=== PATIENT | female | born 1965 | race Caucasian/White ===

== ENCOUNTER 2016-04-29 14:04 | Emergency (ER) | payer OTHER | END 2016-04-29 14:06 | disposition left against medical advice (07) | LOC: FER 14:04 | DX: J02.9 Acute pharyngitis, unspecified (principal); Z53.8 Procedure and treatment not carried out for other reasons ==

== ENCOUNTER 2016-05-16 15:36 | Emergency (ER) | payer OTHER | END 2016-05-16 16:22 | disposition home or self-care (01) | LOC: FER 15:36 | DX: S90.852A Superficial foreign body, left foot, initial encounter (principal); W22.8XXA Striking against or struck by other objects, initial encounter; Y92.009 Unspecified place in unspecified non-institutional (private) residence as the place of occurrence of the external cause | CPT/HCPCS: 73620; 90715; 99282 ==

== ENCOUNTER 2020-03-13 15:48 | Emergency (ER) | payer OTHER ==
[~2020-03-13 15:48] MED LIST: VIBRAMYCIN100 MG PO
[2020-03-13 18:37] LABS: BASOPHIL 0.6 % (0-2); EOSINOPHIL 0.8 % (0-5); HCT 41.9 % (37.0-47.0); HGB 13.6 g/dl (12.5-16.0); LYMPHOCYTE 16.5 % (15-48); MCH 30.5 pg (25.0-31.0); MCHC 32.5 g/dL (32.0-36.0); MCV 93.9 fL (78.0-100.0); MONOCYTE 7.3 % (0-12); MPV 10.5 fL (6.0-9.5); NEUTROPHIL 74.1 % (41-80); NRBC 0; PLT 325 K/uL (150-400); RBC 4.46 M/uL (4.20-5.40); RDW 13.2 % (11.5-14.0); WBC 13.1 K/uL (4.0-10.5)
[2020-03-13 18:48] LABS: INR 0.98 (0.9-1.2); PROTHROMBIN TIME 12.3 SECONDS (11.4-13.6); PTT 26.4 SECONDS (22.2-34.7)
[2020-03-13 18:49] LABS: D-DIMER < 0.27 ug/mLFEU (0.00-0.41)
[2020-03-13 18:53] LABS: ALBUMIN 3.5 g/dL (3.4-5.0); BILIRUBIN - TOTAL 0.2 mg/dL (0.2-1.0); BUN/CREAT RATIO (CALC) 14.1 RATIO; C-REACTIVE PROTEIN 0.4 mg/dL (<=0.90); CREATININE 0.78 mg/dL (0.51-0.95); GLOBULIN (CALCULATION) 3.8 g/dL; POTASSIUM 4.7 mmol/L (3.5-5.1); TOTAL PROTEIN 7.3 g/dL (6.4-8.2)
[2020-03-13 18:56] LABS: LACTIC ACID 1.4 mmol/L (0.4-1.9)
[2020-03-13] MEDS ORDERED: VIBRAMYCIN100 MG PO (19:17)
[2020-03-13] MEDS ORDERED: MUCINEX 600MG600 MG PO (19:17)
== END 2020-03-13 19:40 | disposition home or self-care (01) ==
LOC: FER 15:48
PROVIDERS: Emergency Medicine
DX: J18.9 Pneumonia, unspecified organism (principal); J44.1 Chronic obstructive pulmonary disease with (acute) exacerbation; Z20.822 Contact with and (suspected) exposure to COVID-19
CPT/HCPCS: 36415; 36600; 71045; 80053; 82803; 83605; 83880; 85025; 85379; 85610; 85730; 86140; 93005; U0002

== ENCOUNTER 2020-06-01 13:14 | Emergency (ER) | payer OTHER ==
[~2020-06-01 13:14] MED LIST changes: +MUCINEX 600MG600 MG PO
[2020-06-01] MEDS ORDERED: ROBITUSSIN W/COD5 ML PO (13:51)
[2020-06-01] MEDS ORDERED: AMOXICILLIN500 MG PO (13:51)
== END 2020-06-01 14:34 | disposition home or self-care (01) ==
LOC: FER 13:14
DX: J02.9 Acute pharyngitis, unspecified (principal); F17.210 Nicotine dependence, cigarettes, uncomplicated
CPT/HCPCS: 96372; 99282; J0561; J1040

== ENCOUNTER 2020-10-13 14:20 | Emergency (ER) | payer OTHER ==
[~2020-10-13 14:20] MED LIST changes: +AMOXICILLIN500 MG PO; +ROBITUSSIN W/COD5 ML PO
[2020-10-13 16:28] LABS: BILIRUBIN NEGATIVE (NEGATIVE); BLOOD NEGATIVE Ery/uL (NEGATIVE); CLARITY CLEAR (CLEAR); COLOR YELLOW (YELLOW); GLUCOSE (U) NORMAL (NORMAL); LEUKOCYTES NEGATIVE Leu/uL (NEGATIVE); NITRITE NEGATIVE (NEGATIVE); PROTEIN NEGATIVE (NEGATIVE); SPECIFIC GRAVITY 1.025 (1.001-1.030); UROBILINOGEN 0.2 mg/dL (0.2-1.0)
[2020-10-13 16:33] LABS: BASOPHIL 0.9 % (0-2); EOSINOPHIL 1.7 & (0-5); HCT 39.4 % (37.0-47.0); HGB 12.8 g/dl (12.5-16.0); LYMPHOCYTE 31.7 % (15-48); MCH 30.9 pg (25.0-31.0); MCHC 32.5 g/dL (32.0-36.0); MCV 95.2 fL (78.0-100.0); MONOCYTE 12.1 % (0-12); MPV 9.9 fL (6.0-9.5); NEUTROPHIL 53.2 % (41-80); PLT 347 K/uL (150-400); RBC 4.14 M/uL (4.20-5.40); RDW 13.8 % (11.5-14.0); WBC 10.24 K/uL (4.0-10.5)
[2020-10-13 16:35] LABS: ECSTASY (MDMA) NEGATIVE (NEGATIVE); MARIJUANA (THC) NEGATIVE (NEGATIVE); METHADONE NEGATIVE (NEGATIVE)
[2020-10-13 16:36] LABS: AMPHETAMINES NEGATIVE (NEGATIVE); BARBITURATES NEGATIVE (NEGATIVE); OPIATES NEGATIVE (NEGATIVE); OXYCODONE NEGATIVE (NEGATIVE)
[2020-10-13 16:56] LABS: ALBUMIN 3.7 g/dL (3.4-5.0); BILIRUBIN - TOTAL 0.3 mg/dL (0.2-1.0); BUN/CREAT RATIO (CALC) 9.1 RATIO; CREATININE 0.88 mg/dL (0.51-0.95); GLOBULIN (CALCULATION) 3.4 g/dL; POTASSIUM 4.3 mmol/L (3.5-5.1); TOTAL PROTEIN 7.1 g/dL (6.4-8.2)
[2020-10-13] MEDS ORDERED: TRIAMCINOLONE A15 G2 TOP (17:57)
[2020-10-13] MEDS ORDERED: PREDNISONE 20MG20 MG PO (17:58)
[2020-10-13] MEDS ORDERED: XYZAL5 MG PO (17:58)
[2020-10-13 18:03] LABS: CORONAVIRUS 2019 SARS-COV-2 NEGATIVE (NEGATIVE); INFLUENZA A NAA NEGATIVE (NEGATIVE)
[2020-10-13] MEDS ORDERED: VIBRAMYCIN100 MG PO (18:15)
== END 2020-10-13 18:53 | disposition home or self-care (01) ==
LOC: FER 14:20
PROVIDERS: Internal Medicine
DX: J44.1 Chronic obstructive pulmonary disease with (acute) exacerbation (principal); R21 Rash and other nonspecific skin eruption; F17.210 Nicotine dependence, cigarettes, uncomplicated; Z79.899 Other long term (current) drug therapy; Z20.822 Contact with and (suspected) exposure to COVID-19
CPT/HCPCS: 36415; 71045; 80053; 80305; 81003; 84145; 84484; 85025; 93005; J2930; U0002

== ENCOUNTER 2020-12-10 02:24 | Emergency (ER) | payer OTHER ==
[~2020-12-10 02:24] MED LIST changes: +PREDNISONE 20MG20 MG PO; +TRIAMCINOLONE A15 G2 TOP; +XYZAL5 MG PO
[2020-12-10 02:47] LABS: BASOPHIL 0.9 % (0-2); EOSINOPHIL 1.7 % (0-5); HCT 44.5 % (37.0-47.0); HGB 14.4 g/dl (12.5-16.0); LYMPHOCYTE 31.5 % (15-48); MCHC 32.4 g/dL (32.0-36.0); MCV 95.9 fL (78.0-100.0); MONOCYTE 10.3 % (0-12); MPV 9.8 fL (6.0-9.5); NEUTROPHIL 55.1 % (41-80); NRBC 0; PLT 392 K/uL (150-400); RBC 4.64 M/uL (4.20-5.40); RDW 13.7 % (11.5-14.0); WBC 14.3 K/uL (4.0-10.5)
[2020-12-10 03:14] LABS: ALBUMIN 3.9 g/dL (3.4-5.0); BILIRUBIN - TOTAL 0.2 mg/dL (0.2-1.0); BUN/CREAT RATIO (CALC) 12.4 RATIO; CREATININE 0.97 mg/dL (0.51-0.95); POTASSIUM 4.5 mmol/L (3.5-5.1); TOTAL PROTEIN 7.9 g/dL (6.4-8.2)
[2020-12-10] MEDS ORDERED: FLEXERIL5 MG PO (05:08)
== END 2020-12-10 05:30 | disposition home or self-care (01) ==
LOC: FER 02:24
PROVIDERS: Emergency Medicine
DX: R07.89 Other chest pain (principal); J44.9 Chronic obstructive pulmonary disease, unspecified; F17.200 Nicotine dependence, unspecified, uncomplicated
CPT/HCPCS: 36415; 71045; 80053; 84484; 85025; 85379; 93005; J1170; J1885; J2800; J7030; J7050

== ENCOUNTER 2021-02-22 19:51 | Emergency (ER) | payer OTHER ==
[~2021-02-22 19:51] MED LIST changes: +FLEXERIL5 MG PO
[2021-02-22 21:44] LABS: BASOPHIL 0.9 % (0-2); EOSINOPHIL 1.2 % (0-5); HGB 13.7 g/dl (12.5-16.0); LYMPHOCYTE 16.7 % (15-48); MCH 30.4 pg (25.0-31.0); MCHC 31.9 g/dL (32.0-36.0); MCV 95.3 fL (78.0-100.0); MONOCYTE 17.1 % (0-12); MPV 9.9 fL (6.0-9.5); NEUTROPHIL 63.6 % (41-80); NRBC 0; PLT 332 K/uL (150-400); RBC 4.51 M/uL (4.20-5.40); RDW 13.8 % (11.5-14.0); WBC 8.5 K/uL (4.0-10.5)
[2021-02-22 21:45] LABS: INFLUENZA A NAA NEGATIVE (NEGATIVE)
[2021-02-22 21:46] LABS: CORONAVIRUS 2019 SARS-COV-2 POSITIVE (NEGATIVE)
[2021-02-22 22:10] LABS: BILIRUBIN - TOTAL 0.3 mg/dL (0.2-1.0); BUN/CREAT RATIO (CALC) 9.3 RATIO; CREATININE 1.08 mg/dL (0.51-0.95); GLOBULIN (CALCULATION) 3.5 g/dL; POTASSIUM 4.4 mmol/L (3.5-5.1); TOTAL PROTEIN 7.5 g/dL (6.4-8.2)
[2021-02-22] MEDS ORDERED: HYCODAN5 ML PO (23:23)
[2021-02-22] MEDS ORDERED: DUONEB 2.5-0.5M1 AMP INH (23:23)
[2021-02-22] MEDS ORDERED: VIBRAMYCIN100 MG PO (23:23)
[2021-02-22] MEDS ORDERED: PREDNISONE 20MG20 MG PO (23:23)
== END 2021-02-22 23:35 | disposition home or self-care (01) ==
LOC: FER 19:51
PROVIDERS: Physician Assistant
DX: U07.1 COVID-19 (principal); J44.9 Chronic obstructive pulmonary disease, unspecified; F17.200 Nicotine dependence, unspecified, uncomplicated
CPT/HCPCS: 36415; 71045; 80053; 84484; 85025; 93005; J1885; J7030; U0002

== ENCOUNTER 2021-03-20 17:47 | Emergency (ER) | payer OTHER ==
[~2021-03-20 17:47] MED LIST changes: +DUONEB 2.5-0.5M1 AMP INH; +HYCODAN5 ML PO
[2021-03-20 19:13] LABS: INFLUENZA A NAA NEGATIVE (NEGATIVE)
[2021-03-20 19:15] LABS: CORONAVIRUS 2019 SARS-COV-2 POSITIVE (NEGATIVE)
[2021-03-20] MEDS ORDERED: TESSALON PERLE100 MG PO (19:32)
[2021-03-20] MEDS ORDERED: ONDANSETRON HCL4 MG PO (19:32)
== END 2021-03-20 19:41 | disposition home or self-care (01) ==
LOC: FER 17:47
PROVIDERS: Nurse Practitioner Family
DX: U07.1 COVID-19 (principal); J44.9 Chronic obstructive pulmonary disease, unspecified; F17.210 Nicotine dependence, cigarettes, uncomplicated
CPT/HCPCS: 99284; U0002

== ENCOUNTER 2021-10-28 00:25 | Emergency (ER) | payer OTHER ==
[~2021-10-28 00:25] MED LIST changes: +ONDANSETRON HCL4 MG PO; +TESSALON PERLE100 MG PO
[2021-10-28 01:48] LABS: CORONAVIRUS 2019 SARS-COV-2 NEGATIVE (NEGATIVE); INFLUENZA A NAA NEGATIVE (NEGATIVE)
== END 2021-10-28 03:00 | disposition home or self-care (01) ==
LOC: FER 00:25
PROVIDERS: Emergency Medicine
DX: J02.9 Acute pharyngitis, unspecified (principal); F17.200 Nicotine dependence, unspecified, uncomplicated; Z20.822 Contact with and (suspected) exposure to COVID-19; Z28.311 Partially vaccinated for COVID-19
CPT/HCPCS: 87880; 99283; U0002